=== PATIENT | female | born 1965 ===

== ENCOUNTER 2025-05-13 06:37 | Day surgery (SDC) | payer OTHER ==
[2025-05-06 12:38] VITALS: BP 128/85
[~2025-05-13] VITALS: Ht 157.5 cm; Wt 68.9 kg
[~2025-05-13 06:37] MED LIST: LOSARTAN POTASS25 MG PO; PROAIR RESPICL90 MCG IH
[2025-05-13] MEDS ORDERED: IBU600 MG PO (10:01)
== END 2025-05-13 14:50 | disposition home or self-care (01) ==
LOC: CIR.AMB 06:37
PROVIDERS: ATTEND Obstetrics & Gynecology Gynecology
DX: N84.0 Polyp of corpus uteri (principal)